=== PATIENT | female | born 1970 | race Caucasian/White ===

== ENCOUNTER 2017-08-02 15:44 | Emergency (ER) | payer OTHER ==
[~2017-08-02 15:44] MED LIST: Iopamidol 370 76% 50 ML VIAL FS ONE
[2017-08-02] MEDS ORDERED: ISOVUE-370 76%-LOCM 1 ML ONE (15:45)
[2017-08-02 16:17] LABS: #Eosinphils 0.2 thou/uL (0.0-0.7); #Lymphocytes 1.3 thou/uL (1.20-3.40); #Monocytes 0.6 thou/uL (0.11-0.59); #Neutrophils 9.3 thou/uL (1.40-6.50); %Basophils 0.4 % (0.0-1.0); %Lymphocytes 11.2 % (21.0-51.0); %Monocytes 5.2 % (0.0-10.0); Hematocrit 43.3 % (36.0-47.0); Red Blood Cell (RBC) Count 4.67 mill/uL (4.20-5.40); White Blood Cell (WBC) Count 11.5 thou/uL (4.8-10.8)
[2017-08-02 16:40] LABS: Anion Gap 15 mmol/L (10-20); BUN (Urea Nitrogen) 11 mg/dL (7.0-18.7); Calc. Creatinine Clearance 0 mL/min (70-130); Carbon Dioxide 22 mmol/L (22-29); Chloride 99 mmol/L (98-107); Estimated GFR-MDRD 57
[2017-08-02 16:41] LABS: ALT (SGPT) 16 U/L (8-55); AST (SGOT) 19 U/L (5-34); Alkaline Phosphatase 98 U/L (40-150); Bilirubin, Total 0.3 mg/dL (0.2-1.2); CK (CPK) 63 U/L (29-168); Calcium 9.4 mg/dL (7.8-10.44); Globulin 4.4 g/dL (2.4-3.5); Lipase 26 U/L (8-78); Protein, Total 8.3 g/dL (6.0-8.3)
--- NOTE | 2017-08-02 16:49 | RAD ---
ACUTE ABDOMINAL SERIES 08/02/2017 HISTORY: Cholecystectomy one month ago. The patient had onset of chest pain one day ago. FINDINGS: CHEST X-RAY: Compared to study on 06/23/2017. Cardiac silhouette and pulmonary vasculature are within normal limits. The lungs remain clear. The re has been no interval change from prior exam. TWO VIEWS OF THE ABDOMEN: Surgical clips overlie the right upper quadrant. Phleboliths overlie the pelvis. Post-surgical all nges of right hip are seen. Degenerative changes noted in the spine. There is a nonspecific bowel gas pattern with small amount of retained fecal material seen in the ascending transverse colon. IMPRESSION: Nonspecific bowel gas pattern. POS: [facility]
[2017-08-02] MEDS ORDERED: Ondansetron HCl/PF 4 MG/2 ML Vial ONE (16:54)
[2017-08-02] MEDS ORDERED: Morphine 10 MG/ML VIAL ONE ×2 (16:54→17:52)
[2017-08-02] MEDS ORDERED: Famotidine/PF 20 mg/2ml Vial ONE (18:11)
[2017-08-02] MEDS ORDERED: Fentanyl 100 MCG/2 ML VIAL ONE (18:11)
[2017-08-02 19:52] LABS: Bilirubin Negative (Negative); Blood, Urine Large (Negative); Glucose, Urine (Dipstick) Negative (Negative); Ketone, Urine Trace mg/dL (Negative); Nitrite Negative (Negative); Protein, Urine (Dipstick) Negative (Neg-Trace); Urobilinogen 0.2 mg/dL (0.2-1.0)
[2017-08-02 19:54] LABS: Bacteria/HPF 1+ HPF (None Seen); Hyaline Casts/LPF 4-6 HYALINE CAST LPF (0-3 Hyaline)
[2017-08-02] MEDS ORDERED: cefTRIAXone\\ROCEPHIN 1 GM, Syringe 0.4 ML in Sterile Water 9.6 ML SLOW IVP SCH (20:30)
--- NOTE | 2017-08-02 22:10 | CT ---
CT ABDOMEN AND PELVIS WITH IV CONTRAST: History: 47-year-old female with nausea and chest pain with a history of cholecystectomy one month a go. FINDINGS: There is mild bibasilar atelectasis. There is nonspecific heterogeneity of the liver. The gallbladde r is surgically absent. Pancreas and spleen are normal appearing. The adrenal glands are normal appearing. There is mild right and severe left hydronephrosis. There is an enhancing mass seen at the level of the cervix involving the posterior aspect of the bladder. The transition point for the dilated urete rs is seen near this region, at approximately the level of the trigone. The mass measures approximat min 5.4 x 4.1 cm in size and is suspicious for cervical malignancy. There is a gas filled tampon within the vagina. Rectum and perirectal soft tissues are unremarkable. No pathologically enlarged lymph nodes are grossly evident. There is healed percutaneously pinned r ight femoral neck fracture without overt evidence of osteonecrosis of the femoral head. There is mil d degenerative change of the lower lumbar spine. IMPRESSION: 1. Mass seen within the region of the cervix with mass effect on the posterior aspect of the bladder causing mild right and severe left hydronephrosis. Findings are suspicious for locally invasive cer vical malignancy. ENVIRONMENTAL HEALTH AIDE consultation is recommended. 2. Heterogenous appearance of the liver is nonspecific and may be related to phase of contrast. 3. Cholecystectomy. 4. Healed percutaneously pinned right femoral neck fracture without evidence of osteonecrosis. Code T POS: [facility]
--- NOTE | 2017-08-07 18:13 | EKG ---
Test Reason : Blood Pressure : / mmHG Vent. Rate : 115 BPM Atrial Rate : 115 BPM P-R Int : 128 ms QRS Dur : 086 ms QT Int : 352 ms P-R-T Axes : 073 003 076 degrees QTc Int : 486 ms Sinus tachycardia Biatrial enlargement Abnormal ECG Confirmed by CYNTHIA LOPEZ M.D. ([id number]), field map editor NATALYA BEAN ([id number]) on 08/07/2017 6:12:58 PM Referred By: Confirmed By:CYNTHIA LOPEZ M.D.
== END 2017-08-02 22:34 | disposition home or self-care (01) ==
LOC: ERS 15:44
DX: N13.30 Unspecified hydronephrosis (principal); N39.0 Urinary tract infection, site not specified; R03.0 Elevated blood-pressure reading, without diagnosis of hypertension; S72.001D Fracture of unspecified part of neck of right femur, subsequent encounter for closed fracture with routine healing; F17.210 Nicotine dependence, cigarettes, uncomplicated; V89.2XXD Person injured in unspecified motor-vehicle accident, traffic, subsequent encounter
CPT/HCPCS: 74022; 74177; 80053; 81003; 81015; 81025; 82553; 83690; 84484; 85025; 87086; 93005; 96361; 96374; 96375; 96376; 99406; A4216; J0696; J2270; J2405; J3010; S0028

== ENCOUNTER 2017-09-02 10:34 | Outpatient (CLI) | payer OTHER ==
[2017-09-02 12:22] LABS: Hematocrit 37.2 % (36.0-47.0); Mean Platelet Volume 7.4 fL (7.4-10.4); Red Blood Cell (RBC) Count 3.96 mill/uL (4.20-5.40)
[2017-09-02 12:30] LABS: PTT 28.3 SEC (22.9-36.1); Prothrombin Time 14.1 SEC (12.0-14.7)
[2017-09-02 12:42] LABS: Anion Gap 11 mmol/L (10-20); BUN (Urea Nitrogen) 19 mg/dL (7.0-18.7); Calc. Creatinine Clearance 0 mL/min (70-130); Calcium 9.2 mg/dL (7.8-10.44); Carbon Dioxide 26 mmol/L (22-29); Chloride 104 mmol/L (98-107); Estimated GFR-MDRD 53
[2017-09-02 12:43] LABS: Bilirubin Negative (Negative); Blood, Urine Negative (Negative); Glucose, Urine (Dipstick) Negative (Negative); Ketone, Urine Negative (Negative); Nitrite Negative (Negative); Protein, Urine (Dipstick) Negative (Neg-Trace)
[2017-09-02 12:46] LABS: Bacteria/HPF None Seen HPF (None Seen); Hyaline Casts/LPF 0-3 HYALINE CAST LPF (0-3 Hyaline); RBC/HPF 0-3 HPF (0-3); Squamous Epithelial 0-3 HPF (0-3); WBC/HPF 0-3 HPF (0-3)
== END 2017-09-02 10:35 | disposition home or self-care (01) ==
LOC: LABBT 10:34
PROVIDERS: ATTEND Urology
DX: Z01.818 Encounter for other preprocedural examination (principal); N13.30 Unspecified hydronephrosis
CPT/HCPCS: 80048; 81001; 81025; 85027; 85610; 85730; 87086; 93005; 93010

== ENCOUNTER 2017-09-09 09:05 | Day surgery (SDC) | payer OTHER, SELFPAY ==
[2017-09-02 10:43] VITALS: BMI 27.4
[2017-09-09] MEDS ORDERED: Levofloxacin 500 mg/D5W 100 ml Premix Bag ONE (10:22)
[2017-09-09] MEDS ORDERED: Iothalamate Meglumine 60% 50 ML VIAL FS ONE (11:12)
[2017-09-09] MEDS ORDERED: Midazolam HCl 2 mg/2 ml Vial ONE (11:13)
[2017-09-09] MEDS ORDERED: Fentanyl 100 MCG/2 ML VIAL ONE ×2 (11:17)
--- NOTE | 2017-09-09 12:34 | OP ---
DATE OF PROCEDURE: 09/09/2017 SERVICE: Urology. SURGEON: Forrest Lawson M.D. PREOPERATIVE DIAGNOSIS: Metastatic cervical cancer with bilateral hydronephrosis. POSTOPERATIVE DIAGNOSIS: Metastatic cervical cancer with bilateral hydronephrosis. PROCEDURES PERFORMED: Cystoscopy with retrograde pyelogram and bilateral ureteral stent placement. INDICATIONS FOR PROCEDURE: Ms. Thomas is a 47-year-old white female who was diagnosed with metastati c cervical cancer. Her biopsies have only demonstrated high grade dysplasia, but it is likely that s he has a higher adenocarcinoma of the cervix or endometrium. She is planned for chemotherapy and has consultations at [facility], which was her choice. Of note, on her staging imaging, she was noted to have bilateral hydronephrosis, left greater than right. Her creatinine is normal, but I had recom mended that she consider urinary drainage. I recommended nephrostomy tubes given the size of her mas s as stents without a high likelihood of failure, but the patient elected against my recommendations and decided to have stents nonetheless. We have discussed the risks and benefits including stent ish lure and persistent hydronephrosis with further need for nephrostomy tubes later. She understands th is risks and still wishes to go forward with the stent now. DESCRIPTION OF PROCEDURE: After identification of armband and verification of consent, the patient w as brought back to the operating room where she underwent general anesthesia with LMA. She was place d in dorsal lithotomy position and prepped and draped in usual sterile fashion. After appropriate ti meout, a lubricated 22 Malawian rigid cystoscope was then introduced per urethra into the bladder. A f ull cystoscopy was performed which demonstrated a large mass effect on the trigone of the bladder wit h elevation of both ureteral orifices. There appears to be tumor invasion into the bladder with nodu lar whitish masses with hypervascularity surrounding the left ureteral orifice worrisome for cervical cancer invasive into the bladder. If she ever was planned for debulking hysterectomy, it would be v valerio likely the patient would need a cystectomy at the same time which makes palliative hysterectomy l ess likely and it is unlikely she would need surgery anyways given her metastatic cancer. Nonetheles s, a 0.035 sensor wire was advanced through the left ureteral orifice which appeared to coil somewhat proximal to where the expected location of the kidney. A 5 Malawian Pollack catheter was passed over the sensor wire into the distal ureter and the sensor wire removed. A retrograde pyelogram was perfo rmed which demonstrated a tortuous left ureter with the coiling of the wire in the region of the prox imal ureter where there was a sigmoid curvature into a very hydronephrotic left kidney. Using the Po llack catheter, this was used to guide an angled Glidewire through the area of the tortuosity into th e renal pelvis. The Pollack catheter was then removed and a 6 x 26 double-J stent was advanced over the Glidewire till the level of the renal pelvis. The Glidewire was then removed leaving a good curl in the renal pelvis and good curl in the bladder. Attention was then turned to the right ureteral o rifice which was cannulated with a 0.035 sensor wire up to the level of the expected renal pelvis. A 6 x 26 double-J stent was advanced over the sensor wire to the level of the renal pelvis and the wir e removed leaving a good curl in the renal pelvis and good curl in the bladder. This was in the expe cted location of the renal pelvis and I felt comfortable with this location. Both stents did appear to be effluxing urine, although the left side appeared slow. On final one shot fluoroscopy, the cont rast had drained out of the renal pelvis; however, there was still a column of contrast in the distal ureter indicating that there may still be a partial obstruction despite the stent. Nonetheless, we will see how she does with this and then plan for repeat ultrasound in the future with renal function , and if she has persistent hydronephrosis, we may need to discuss nephrostomy tube placement versus metal stent with preference towards nephrostomy tube. The bladder was then emptied and the cystoscop e was removed. The patient was awakened and taken to PACU for recovery in stable condition. COMPLICATIONS: None. ESTIMATED BLOOD LOSS: Minimal. RETAINED TUBES AND DRAINS: A 6 x 26 double-J stents bilaterally. SPECIMENS: None. DISPOSITION: The patient will be discharged home and follow up with me in approximately 2 months for a stent exchange. I will plan a renal ultrasound in approximately 1 week and call her with the resu lts. If there is persistent hydronephrosis, I will call her back sooner and we will plan for further intervention with possible nephrostomy tubes. She should keep her appointments at [facility] for c ontinuation of treatment of her metastatic cervical cancer.
[2017-09-09] MEDS ORDERED: Oxybutynin 5 MG TAB ONE (12:38)
[2017-09-09] MEDS ORDERED: Phenazopyridine HCl 97.5 MG TABLET ONE ×2 (12:39→12:41)
--- NOTE | 2017-09-09 14:49 | RAD ---
BILATERAL RETROGRADE PYELOGRAM: DATE: 09/09/17. HISTORY: Bilateral hydronephrosis. FINDINGS: Four images are provided during retrograde pyelogram. Initial image demonstrates contrast media with in a dilated ureter and partially imaged renal collecting system. This appears to represent the left side. Subsequent imaging demonstrates placement of a left-sided double-J ureteral stent and a right -sided double-J ureteral stent. Final image demonstrates residual contrast media within a dilated di stal right ureter. IMPRESSION: Bilateral double-J ureteral stent placement. There is residual contrast media within dilated distal left ureter. Findings suggesting a distal bilateral obstructing process, as seen on08/02/[address] [facility]. POS: [facility]
[2017-09-09] MEDS ORDERED: Dexamethasone 20 MG/5 ML VIAL ONE (17:15)
[2017-09-09] MEDS ORDERED: Ondansetron HCl/PF 4 MG/2 ML Vial ONE (17:15)
[2017-09-09] MEDS ORDERED: Propofol 200 MG/20 ML VIAL ONE (17:15)
[2017-09-09] MEDS ORDERED: Ketorolac Tromethamine 30 MG/ML VIAL ONE (17:15)
[2017-09-09] MEDS ORDERED: Lidocaine 1% PF 5 ML VIAL ONE (17:15)
== END 2017-09-09 13:45 | disposition home or self-care (01) ==
LOC: SDC 09:05
PROVIDERS: ATTEND Urology
PROC: 0T9880Z Drainage of Bilateral Ureters with Drainage Device, Via Natural or Artificial Opening Endoscopic (ICD-10-PCS; principal; 2017-09-09)
DX: N13.30 Unspecified hydronephrosis (principal); R87.613 High grade squamous intraepithelial lesion on cytologic smear of cervix (HGSIL); C53.9 Malignant neoplasm of cervix uteri, unspecified; N32.9 Bladder disorder, unspecified; F17.210 Nicotine dependence, cigarettes, uncomplicated; Z90.49 Acquired absence of other specified parts of digestive tract; Z88.5 Allergy status to narcotic agent; Z88.1 Allergy status to other antibiotic agents; Z98.890 Other specified postprocedural states
CPT/HCPCS: 74420; C1758; C1769; J1100; J1885; J1956; J2001; J2250; J2405; J2704; J3010; Q9961

== ENCOUNTER 2017-11-29 16:08 | Outpatient (CLI) | payer OTHER, SELFPAY ==
[2017-11-29 17:26] LABS: Hemoglobin 13.7 g/dL (12.0-16.0); Mean Corpuscular HGB CONC 32.1 g/dL (32.0-36.0); Mean Corpuscular Hemoglobin 28.9 pg (27.0-31.0); Mean Corpuscular Volume 90.1 fl (81.0-99.0); Mean Platelet Volume 6.8 fL (7.4-10.4); Platelet Count 347 thou/uL (130-400); RBC Distribution Width 12.9 % (11.5-14.5); Red Blood Cell (RBC) Count 4.72 mill/uL (4.20-5.40); White Blood Cell (WBC) Count 9.3 thou/uL (4.8-10.8)
[2017-11-29 17:31] LABS: PTT 25.9 SEC (22.9-36.1); Prothrombin Time 13.2 SEC (12.0-14.7)
[2017-11-29 17:50] LABS: Bilirubin Negative (Negative); Blood, Urine Moderate (Negative); Clarity CLEAR (Clear); Glucose, Urine (Dipstick) Negative (Negative); Leukocyte Moderate (Negative); Nitrite Negative (Negative); Protein, Urine (Dipstick) Negative (Neg-Trace); Specific Gravity, Urine 1.014 (1.002-1.036); Urobilinogen 0.2 mg/dL (0.2-1.0)
[2017-11-29 17:52] LABS: Anion Gap 12 mmol/L (10-20); BUN (Urea Nitrogen) 13 mg/dL (7.0-18.7); Calc. Creatinine Clearance 0 mL/min (70-130); Calcium 9.3 mg/dL (7.8-10.44); Carbon Dioxide 25 mmol/L (22-29); Chloride 102 mmol/L (98-107); Estimated GFR-MDRD 70; Glucose 84 mg/dL (70-105); Sodium 135 mmol/L (136-145)
[2017-11-29 17:56] LABS: Bacteria/HPF None Seen HPF (None Seen); Hyaline Casts/LPF 0-3 HYALINE CAST LPF (0-3 Hyaline)
[2017-11-29 18:23] LABS: Renal Epithelial None Seen HPF (0-3); Transitional Epithelial 0-3 HPF (0-3)
[2017-11-29 19:47] LABS: BHCG - Serum Negative (NEGATIVE); Pregs Control Background? CLEAR/WHITE (CLR/WHITE); Pregs Control Bar Appear? YES (CONTROL BAR)
--- NOTE | 2017-11-30 11:50 | EKG ---
Test Reason : Blood Pressure : / mmHG Vent. Rate : 096 BPM Atrial Rate : 096 BPM P-R Int : 128 ms QRS Dur : 094 ms QT Int : 368 ms P-R-T Axes : 069 063 059 degrees QTc Int : 464 ms Normal sinus rhythm Possible Left atrial enlargement Poor anterior R wave progression V1 thru V3 Borderline ECG When compared with ECG of 02-SEP-2017 11:07, (Unconfirmed) No significant change was found Confirmed by DR. Charla SPEARS ([id number]) on 11/30/2017 11:50:12 AM Referred By: FARZAD Confirmed By:DR. Charla SPEARS
== END 2017-11-29 16:09 | disposition home or self-care (01) ==
LOC: LABBT 16:08
PROVIDERS: ATTEND Urology
DX: Z01.818 Encounter for other preprocedural examination (principal); N13.30 Unspecified hydronephrosis; N32.89 Other specified disorders of bladder
CPT/HCPCS: 80048; 81001; 84703; 85027; 85610; 85730; 87086; 93005; 93010

== ENCOUNTER 2017-12-02 06:15 | Day surgery (SDC) | payer OTHER, SELFPAY ==
[2017-11-29 16:47] VITALS: BMI 24.9
[2017-12-02] MEDS ORDERED: Levofloxacin 500 mg/D5W 100 ml Premix Bag ONE (06:28)
[2017-12-02] MEDS ORDERED: Fentanyl 250 MCG/5 ML VIAL ONE (06:54)
[2017-12-02] MEDS ORDERED: Midazolam HCl 2 mg/2 ml Vial ONE (07:30)
[2017-12-02] MEDS ORDERED: Propofol 200 MG/20 ML VIAL ONE (07:35)
[2017-12-02] MEDS ORDERED: Glycopyrrolate 0.2 MG/ML 5 ML SYRINGE ONE (07:35)
[2017-12-02] MEDS ORDERED: Ondansetron HCl/PF 4 MG/2 ML Vial ONE (07:35)
[2017-12-02] MEDS ORDERED: Lidocaine 1% PF 5 ML VIAL ONE (07:35)
[2017-12-02] MEDS ORDERED: Dexamethasone 20 MG/5 ML VIAL ONE (07:35)
[2017-12-02] MEDS ORDERED: B & O ONE (08:14)
[2017-12-02] MEDS ORDERED: Phenazopyridine HCl 97.5 MG TABLET ONE (09:03)
[2017-12-02] MEDS ORDERED: Oxybutynin 5 MG TAB ONE (09:03)
--- NOTE | 2017-12-02 09:53 | OP ---
DATE OF PROCEDURE: 12/02/2017 SERVICE: Urology. SURGEON: Forrest Lawson M.D. PREOPERATIVE DIAGNOSES: Presumed cervical cancer with bilateral hydronephrosis. POSTOPERATIVE DIAGNOSES: Presumed cervical cancer with bilateral hydronephrosis. PROCEDURE PERFORMED: A transurethral resection of bladder tumor approximately 2-5 cm with bilateral stent exchange 6 x 26 double-J stent. INDICATIONS FOR PROCEDURE: Mrs. Thomas is a 47-year-old white female with a large cervical mass whic h was presumed to be cervical cancer. This has resulted in bilateral hydronephrosis which she origin ally presented to me for. We had placed stents at that time and she was scheduled for a repeat biops y of her cervix. Unfortunately, multiple biopsies from the cervix have been nondiagnostic of cervica l cancer demonstrating only normal cervical tissue. Based on CT findings, it is likely that the mass is growing from the proximal portion of the cervical canal. As such, she has still not had a tissue diagnosis. I discussed with her obtaining tissue diagnosis to the bladder. It did appear that ther e was tumor growing into the bladder from the cervix and since she is being taken for a stent exchang e anyways. Risks and benefits of the surgery were discussed and she has agreed to proceed forward. DESCRIPTION OF PROCEDURE: After identification of arm band verification and consent, the patient was brought back to the operating room where she underwent general anesthesia with endotracheal intubati on. She was then placed in dorsal lithotomy position, prepped and draped in usual sterile fashion. After appropriate timeout, a 24 Greek resectoscope sheath was placed into the bladder. Attention wa s turned to both ureteral orifices, which demonstrated stents and standard surrounding bullous edema. Near the left ureteral orifice there appeared to be calcifications and a polypoid type tumorous tis sandra growing from adjacent to the ureteral orifice. This appeared suspicious for cervical cancer. Th e visual obturator was switched out for the bladder loop resectoscope sheath on the bipolar gyrus. R esections were taken just lateral to the ureteral orifice into the bladder until I felt I was deep en ough to get the cervical cancer tissue. The tissue appeared fluffy and somewhat necrotic indicating very high likelihood that the tumor was obtained in the resection specimen. This does appear very mu ch like cancer on cystoscopy. The chips were evacuated and sent off for routine pathologic evaluatio n. The base of the tumor resection site was fulgurated. There did not appear to be any extension of the resection outside of the bladder. There did not appear to be any perivesical fat or other caro rning findings. I did not feel a catheter needs to be left in. The resectoscope was removed and a s tandard 22 Greek rigid cystoscope was introduced into the bladder. The left stent was then grasped with flexible graspers and removed to the urethral meatus. A 0.035 sensor wire was passed through th e ureteral stent up to the level of the renal pelvis. The stent was then removed and discarded and t he cystoscope was backloaded over the sensor wire back into the bladder. A new 6 x 26 double-J stent was advanced over the sensor wire back up into the renal pelvis. The wire was removed leaving a goo d curl in the renal pelvis and good curl in the bladder. Attention was then turned to the other were stent on the right and the same procedure was repeated as on the left with removal of the old 6 x 26 stent and placement of a new 6 x 26 double-J stent over the same sensor wire. Both stents had excel lent positioning at the end of the case with good curls proximally and distally. The bladder was the n emptied and the visual inspection of the tumor base again demonstrated no bleeding. All tumor chip s were evacuated. The bladder was emptied and the cystoscope was removed. A BNO suppository was ion elina in the patient's rectum. She was then taken out of lithotomy, awakened and taken to PACU for rec overy in stable condition. COMPLICATIONS: None. ESTIMATED BLOOD LOSS: Minimal. RETAINED TUBES AND DRAINS: Bilateral 6 x 26 double-J stents. SPECIMENS: Bladder tumor likely cervical cancer. DISPOSITION: The patient will be discharged home and follow up with me in approximately 2 and a half months for her next stent exchange. Depending on her progression of treatment at that point, if she has had a significant reduction in her tumor size with chemo and radiation we may be able to conside r taking her stents out and seeing how she does without any stents to see if her hydronephrosis has r esolved.
== END 2017-12-02 10:33 | disposition home or self-care (01) ==
LOC: SDC 06:15
PROVIDERS: ATTEND Urology
PROC: 0T788DZ Dilation of Bilateral Ureters with Intraluminal Device, Via Natural or Artificial Opening Endoscopic (ICD-10-PCS; principal; 2017-12-02)
PROC: 0T5B8ZZ Destruction of Bladder, Via Natural or Artificial Opening Endoscopic (ICD-10-PCS; principal; 2017-12-02)
DX: C67.6 Malignant neoplasm of ureteric orifice (principal); N13.30 Unspecified hydronephrosis; N32.89 Other specified disorders of bladder; F17.210 Nicotine dependence, cigarettes, uncomplicated; Z79.899 Other long term (current) drug therapy; Z88.5 Allergy status to narcotic agent; Z88.2 Allergy status to sulfonamides; Z87.442 Personal history of urinary calculi
CPT/HCPCS: 76000; 86850; 86900; 86901; 88305; 88342; C1769; J1100; J1956; J2001; J2250; J2405; J2704; J3010

== ENCOUNTER 2018-03-14 13:56 | Outpatient (CLI) | payer OTHER ==
[2018-03-14 15:21] LABS: Mean Corpuscular HGB CONC 35.3 g/dL (32.0-36.0); Mean Corpuscular Volume 87.9 fl (81.0-99.0); Mean Platelet Volume 7.5 fL (7.4-10.4); Platelet Count 83 thou/uL (130-400); RBC Distribution Width 12.8 % (11.5-14.5); Red Blood Cell (RBC) Count 3.87 mill/uL (4.20-5.40)
[2018-03-14 15:28] LABS: Bilirubin Negative (Negative); Blood, Urine Large (Negative); Clarity CLOUDY (Clear); Glucose, Urine (Dipstick) >=1000 mg/dL (Negative); Leukocyte Small (Negative); Nitrite Negative (Negative); Protein, Urine (Dipstick) 100 mg/dL (Neg-Trace); Specific Gravity, Urine 1.033 (1.002-1.036)
[2018-03-14 15:30] LABS: Prothrombin Time 13.1 SEC (12.0-14.7)
[2018-03-14 15:32] LABS: Hyaline Casts/LPF 4-6 HYALINE CAST LPF (0-3 Hyaline); Pathc Cast-AUWi Flag 0.72 (0-2.49); WBC/HPF 21-50 HPF (0-3)
[2018-03-14 15:33] LABS: Anion Gap 10 mmol/L (10-20); BUN (Urea Nitrogen) 21 mg/dL (7.0-18.7); Calc. Creatinine Clearance 0 mL/min (70-130); Calcium 8.8 mg/dL (7.8-10.44); Carbon Dioxide 23 mmol/L (22-29); Chloride 105 mmol/L (98-107); Estimated GFR-MDRD 71; Glucose 197 mg/dL (70-105); Potassium 3.4 mmol/L (3.5-5.1); Sodium 135 mmol/L (136-145)
[2018-03-14 15:35] LABS: PTT 22.8 SEC (22.9-36.1)
[2018-03-14 15:37] LABS: Yeast-AUWi Flag 83.5 (0-25.0)
[2018-03-14 15:49] LABS: Bacteria/HPF 1+ HPF (None Seen); Renal Epithelial None Seen HPF (0-3); Transitional Epithelial NONE SEEN HPF (0-3); Yeast-All Forms None Seen HPF (None Seen)
--- NOTE | 2018-03-14 16:40 | EKG ---
Test Reason : Blood Pressure : / mmHG Vent. Rate : 106 BPM Atrial Rate : 106 BPM P-R Int : 130 ms QRS Dur : 092 ms QT Int : 352 ms P-R-T Axes : 075 055 076 degrees QTc Int : 467 ms Sinus tachycardia Right atrial enlargement /possibly per P wave Lead II Borderline ECG When compared with ECG of 29-NOV-2017 17:09, No significant change was found Confirmed by ANJU TRUONG ([id number]) on 03/14/2018 4:39:39 PM Referred By: FARZAD Confirmed By:ANJU TRUONG
== END 2018-03-14 13:57 | disposition home or self-care (01) ==
LOC: LABBT 13:56
PROVIDERS: ATTEND Urology
DX: Z01.818 Encounter for other preprocedural examination (principal)
CPT/HCPCS: 80048; 81001; 85027; 85610; 85730; 87086; 93005; 93010

== ENCOUNTER 2018-03-31 09:45 | Day surgery (SDC) | payer OTHER ==
[2018-03-30 14:29] VITALS: BMI 24.7
[2018-03-31] MEDS ORDERED: Iothalamate Meglumine 60% 50 ML VIAL FS ONE (11:41)
[2018-03-31] MEDS ORDERED: Levofloxacin 500 mg/D5W 100 ml Premix Bag ONE (11:42)
[2018-03-31] MEDS ORDERED: Fentanyl 100 MCG/2 ML VIAL ONE (12:00)
[2018-03-31] MEDS ORDERED: B & O ONE (12:16)
--- NOTE | 2018-03-31 12:50 | OP ---
DATE OF PROCEDURE: 03/31/2018 SERVICE: Urology. SURGEON: Forrest Lawson M.D. PREOPERATIVE DIAGNOSIS: Advanced cervical cancer with bilateral ureteral obstruction. POSTOPERATIVE DIAGNOSIS: Advanced cervical cancer with bilateral ureteral obstruction. PROCEDURE PERFORMED: Cystoscopy with bilateral stent exchange with 7 x 26 double-J stents. INDICATIONS FOR PROCEDURE: Ms. Thomas is a 47-year-old white female with stage IIIB cervical cancer with bilateral ureteral obstruction. She has been undergoing stent exchanges to manage her hydroneph rosis. On recent staging imaging by her oncologist, it was noted that she had a persistent hydro philip pite her ureteral stents which are overdue for a stent exchange. I recommended bringing her to the o perating room for a stent upsizing in an attempt to relieve the obstruction. Risks and benefits have been discussed with the patient and she has agreed to move forward. DESCRIPTION OF PROCEDURE: After identification of armband and verification of consent, patient was b rought back to the operating room and underwent general anesthesia with an LMA. She was then placed in dorsal lithotomy position and prepped and draped in usual sterile fashion. After appropriate time out, a lubricated 22 Ukrainian rigid cystoscope was introduced per urethra into the bladder. The bladde r shows significant bullous edema and cystitis changes, but there does appear to be less tumor within the bladder than on previous cystoscopy. The left stent was initially grasped with flexible grasper s and brought out to the level of the urethral meatus. A 0.035 sensor wire was advanced through the ureteral stent up to the level of the renal pelvis. The stent was then removed and discarded. The o ld stent with 6 x 26 double-J stent and a new 7 x 26 double-J stent was advanced over the sensor wire back up into the renal pelvis under direct vision. The wire was then removed leaving a good curl in the renal pelvis and good curl in the bladder. Attention was then turned to the right ureter and th e grasper was used to grasp the stent and bring out to the level of the urethral meatus. Attempts to pass the wire through the stent was unsuccessful due to encrustation within the stent. Therefore, t he cystoscope was reinserted back into the bladder alongside the ureteral stent and the sensor wire a dvanced alongside the ureteral stent to the level of the renal pelvis. The stent was then removed an d discarded manually and the new 7 x 26 double-J stent was advanced over the sensor wire up to the le keo of the renal pelvis. The wire was then removed leaving a good curl in the renal pelvis and a goo d curl in the bladder. The bladder was then emptied, the cystoscope removed. The patient then awake branden and taken to PACU for recovery in stable condition. A 16-A B&O suppository was placed in the pat ient's rectum prior to her waking up from anesthesia. COMPLICATIONS: None. ESTIMATED BLOOD LOSS: Minimal. RETAINED TUBES AND DRAINS: Bilateral 7 x 26 double-J stents. SPECIMENS: None. DISPOSITION: The patient will be discharged home and follow up with me in approximately 2 weeks with a renal ultrasound done prior to ensure that both stents are functioning. If they are not functioni ng, she will likely need nephrostomy tubes.
[2018-03-31] MEDS ORDERED: Phenazopyridine HCl 97.5 MG TABLET ONE ×2 (12:58→13:00)
--- NOTE | 2018-03-31 13:22 | RAD ---
RETROGRADE URETEROGRAM AND INTRAOPERATIVE FLUOROSCOPY: HISTORY: Ureteral stents. FINDINGS: Operative fluoroscopy was provided for Dr. Lawson. Spot fluoroscopic image shows the upper two-thir ds of the bilateral ureteral stents. The urinary bladder is excluded from the image. POS: [facility]
[2018-03-31] MEDS ORDERED: PROPOFOL 200 MG/20 ML VIAL ONE (15:27)
== END 2018-03-31 13:52 | disposition home or self-care (01) ==
LOC: SDC 09:45
PROVIDERS: ATTEND Urology
PROC: 0T788DZ Dilation of Bilateral Ureters with Intraluminal Device, Via Natural or Artificial Opening Endoscopic (ICD-10-PCS; principal; 2018-03-31)
PROC: 0TP98DZ Removal of Intraluminal Device from Ureter, Via Natural or Artificial Opening Endoscopic (ICD-10-PCS; principal; 2018-03-31)
DX: N13.1 Hydronephrosis with ureteral stricture, not elsewhere classified (principal); C53.9 Malignant neoplasm of cervix uteri, unspecified; Z88.5 Allergy status to narcotic agent; Z79.2 Long term (current) use of antibiotics; Z79.899 Other long term (current) drug therapy
CPT/HCPCS: 74420; C1769; J1956; J2704; J3010; Q9961

== ENCOUNTER 2018-04-11 12:14 | Outpatient (CLI) | payer OTHER | END 2018-04-11 12:15 | disposition home or self-care (01) | LOC: BICULT 12:14 | PROVIDERS: ATTEND Urology | DX: N13.39 Other hydronephrosis (principal); Z96.0 Presence of urogenital implants | CPT/HCPCS: 76770 ==

== ENCOUNTER 2018-05-27 08:29 | Outpatient (CLI) | payer OTHER ==
--- NOTE | 2018-05-27 11:33 | RAD ---
IVP: HISTORY: A 47-year-old female with a history of hydronephrosis and cervical cancer. FINDINGS: Radio Survey Worker film demonstrates bilateral ureteral stents. Following contrast injection, there is bilateral excretion. There is slight fullness of both right and left upper renal collecting systems. The righ t kidney is somewhat larger than the left, with what appears to be some probable mild cortical thinni ng of the left kidney compared to the right. There is prompt drainage into the bladder. There are s ome nodular filling defects within the bladder. I am not certain as to the exact etiology of these. These are noted somewhat near the midline and best seen on the earlier incompletely filled imaging a nd not definitely demonstrated on the more delayed imaging with a more completely filled bladder. Tw o post void studies were done. Initially, the patient did not completely void. She was returned to the bathroom and re-voided, and there was considerable bladder residual, post-void. IMPRESSION: 1. Bilateral ureteral stents with some moderate dilatation of both right and left renal upper collec ting systems with what appears to be a somewhat smaller left kidney and some diffuse left-sided renal cortical loss. 2. Very lobulated, nodular filling defect/defects in the central portion of the bladder, the overall combined size of which measures approximately 1.2 x 4.8 cm. I am not certain as to the etiology of this. Conceivably this could represent some type of intraluminal filling defect from blood or debris . 3. Large post-void residual, despite two attempts at voiding. POS: [facility]
[2018-05-27] MEDS ORDERED: Iopamidol 300 61% 100 ML VIAL FS ONE (13:40)
== END 2018-05-27 08:30 | disposition home or self-care (01) ==
LOC: RAD 08:29
PROVIDERS: ATTEND Urology
DX: C53.9 Malignant neoplasm of cervix uteri, unspecified (principal); N13.39 Other hydronephrosis; N32.9 Bladder disorder, unspecified; Z96.0 Presence of urogenital implants
CPT/HCPCS: 74410

== ENCOUNTER 2018-05-28 18:04 | Emergency (ER) | payer OTHER ==
[~2018-05-28 18:04] MED LIST changes: +ISOVUE-370 76%-LOCM 1 ML ONE; -Iopamidol 370 76% 50 ML VIAL FS ONE
[2018-05-28] MEDS ORDERED: Diazepam 5 MG TAB ONE (18:38)
[2018-05-28] MEDS ORDERED: Ketorolac Tromethamine 30 MG/ML VIAL ONE (18:55)
--- NOTE | 2018-05-28 19:33 | CT ---
CT SCAN OF RIGHT SHOULDER: 05/28/18 Multiple axial tomograms obtained through the right shoulder with multiplanar reconstruction. INDICATIONS: Shoulder pain. On chemotherapy for cervical cancer. There is no evidence of acute fracture. No evidence of dislocation. Minimal degenerative change seen with minimal spurring from the humeral head. Mild degenerative changes at the AC joint. There is no e vidence of lytic or blastic lesion. No soft tissue abnormality seen. IMPRESSION: Very mild degenerative change of the glenohumeral joint and at the AC joint. No acute process identif ied. POS: [facility]
== END 2018-05-28 19:59 | disposition home or self-care (01) ==
LOC: ERS 18:04
DX: M62.838 Other muscle spasm (principal); C53.9 Malignant neoplasm of cervix uteri, unspecified; Z87.442 Personal history of urinary calculi; F17.210 Nicotine dependence, cigarettes, uncomplicated
CPT/HCPCS: 96374; J1885

== ENCOUNTER → 2018-06-02 | Day surgery (SDC) | payer OTHER ==
[2018-06-01 12:17] VITALS: BMI 25.5
[~2018-06-02] MED LIST changes: +Bupivacaine/Epinephrine 0.25% 30 ML VIAL ONE; +CEFAZOLIN/Water 2 GM/20 ML SYRINGE ONE; -ISOVUE-370 76%-LOCM 1 ML ONE
[2018-06-02 11:10] LABS: Anion Gap 7 mmol/L (10-20); BUN (Urea Nitrogen) 19 mg/dL (7.0-18.7); Calc. Creatinine Clearance 87 mL/min (70-130); Calcium 8.7 mg/dL (7.8-10.44); Carbon Dioxide 27 mmol/L (22-29); Chloride 108 mmol/L (98-107); Estimated GFR-MDRD 72; Glucose 92 mg/dL (70-105); Potassium 3.1 mmol/L (3.5-5.1); Sodium 139 mmol/L (136-145)
[2018-06-02 11:22] LABS: #Lymphocytes 0.5 thou/uL (1.20-3.40); #Monocytes 0.2 thou/uL (0.11-0.59); #Neutrophils 0.8 thou/uL (1.40-6.50); %Basophils 0.5 % (0.0-1.0); %Eosinophils 0.2 % (0.0-10.0); %Lymphocytes 35.5 % (21.0-51.0); %Monocytes 10.3 % (0.0-10.0); %Neutrophils 53.6 % (42.0-75.0); Anisocytosis SLIGHT = 6-15 cells (100X) (0-5/hpf); Band 9 % (5-11); Hemoglobin 9.8 g/dL (12.0-16.0); Lymphocytes 32 % (21-51); MDiff Complete? YES; Mean Corpuscular HGB CONC 36.2 g/dL (32.0-36.0); Mean Corpuscular Hemoglobin 35.5 pg (27.0-31.0); Mean Corpuscular Volume 98.1 fL (78.0-98.0); Mean Platelet Volume 7.8 fL (7.4-10.4); Monocytes 10 % (0-10); Neutrophil 47 % (42-75); PLT Morphology Comment Appears Decreased; Platelet Count 79 thou/uL (130-400); Polychromasia SLIGHT = 2-3 cells (100X) (0-2/hpf); RBC Distribution Width 14.3 % (11.5-14.5); Reactive Lymphocytes 2 % (0-10); Red Blood Cell (RBC) Count 2.76 mill/uL (4.20-5.40); Reflex for Review?? YES; White Blood Cell (WBC) Count 1.5 thou/uL (4.8-10.8)
== END ==
LOC: SDC 08:53
PROVIDERS: ATTEND Thoracic Surgery (Cardiothoracic Vascular Surgery)
DX: C53.9 Malignant neoplasm of cervix uteri, unspecified (principal); F17.210 Nicotine dependence, cigarettes, uncomplicated; M16.11 Unilateral primary osteoarthritis, right hip; Z92.3 Personal history of irradiation; Z79.899 Other long term (current) drug therapy; Z88.5 Allergy status to narcotic agent; Z53.8 Procedure and treatment not carried out for other reasons
CPT/HCPCS: 80048; 85025; 85060; J1642

== ENCOUNTER 2018-06-20 09:45 | Outpatient (CLI) | payer OTHER ==
[2018-06-20 10:53] LABS: Bilirubin Negative (Negative); Blood, Urine Large (Negative); Clarity CLOUDY (Clear); Glucose, Urine (Dipstick) Negative (Negative); Leukocyte Moderate (Negative); Nitrite Negative (Negative); Protein, Urine (Dipstick) 100 mg/dL (Neg-Trace); Urobilinogen 0.2 mg/dL (0.2-1.0)
[2018-06-20 10:55] LABS: Bacteria/HPF None Seen HPF (None Seen); Hyaline Casts/LPF 0-3 HYALINE CAST LPF (0-3 Hyaline); Pathc Cast-AUWi Flag 0.87 (0-2.49); RBC/HPF GREATER THAN 50-TNTC HPF (0-3); Squamous Epithelial 21-50 HPF (0-3)
[2018-06-20 10:57] LABS: Renal Epithelial None Seen HPF (0-3); Transitional Epithelial NONE SEEN HPF (0-3)
--- NOTE | 2018-06-26 14:26 | EKG ---
Test Reason : Blood Pressure : / mmHG Vent. Rate : 125 BPM Atrial Rate : 125 BPM P-R Int : 124 ms QRS Dur : 090 ms QT Int : 338 ms P-R-T Axes : 068 045 070 degrees QTc Int : 487 ms Sinus tachycardia Otherwise normal ECG When compared with ECG of 14-MAR-2018 15:00, No significant change was found Confirmed by ALO ALATORRE (2) on 06/26/2018 2:25:53 PM Referred By: FARZAD Confirmed By:ALO ALATORRE
== END 2018-06-20 09:46 | disposition home or self-care (01) ==
LOC: LABBT 09:45
PROVIDERS: ATTEND Urology
DX: Z01.818 Encounter for other preprocedural examination (principal); C53.9 Malignant neoplasm of cervix uteri, unspecified; N13.39 Other hydronephrosis
CPT/HCPCS: 81001; 87086; 93005; 93010

== ENCOUNTER 2018-06-28 11:19 | Day surgery (SDC) | payer OTHER ==
[2018-06-20 09:59] VITALS: BMI 25.4
[2018-06-28] MEDS ORDERED: Levofloxacin 500 mg/D5W 100 ml Premix Bag ONE (12:33)
[2018-06-28] MEDS ORDERED: Midazolam HCl 2 mg/2 ml Vial ONE (12:56)
[2018-06-28] MEDS ORDERED: Dexamethasone 20 MG/5 ML VIAL ONE (14:21)
[2018-06-28] MEDS ORDERED: PROPOFOL 200 MG/20 ML VIAL ONE (14:21)
[2018-06-28] MEDS ORDERED: Lidocaine 1% PF 5 ML VIAL ONE (14:21)
[2018-06-28] MEDS ORDERED: Ondansetron HCl/PF 4 MG/2 ML Vial ONE (14:21)
--- NOTE | 2018-06-28 15:09 | OP ---
DATE OF PROCEDURE: 06/28/2018 SERVICE: Urology. SURGEON: Forrest Lawson M.D. PREOPERATIVE DIAGNOSIS: Bilateral ureteral obstruction secondary to cervical cancer. POSTOPERATIVE DIAGNOSIS: Bilateral ureteral obstruction secondary to cervical cancer. PROCEDURE PERFORMED: Cystoscopy with bilateral stent exchange 6 x 24 double-J stents. INDICATIONS FOR PROCEDURE: Mrs. Thomas is a 47-year-old white female who has advanced stage III cerv ical cancer. She has undergone radiation which was terminated prematurely as well as chemotherapy. She has chronic ureteral obstruction secondary to the advanced cervical cancer which is invasive into her bladder. She is coming in for routine stent exchanges. DESCRIPTION OF PROCEDURE: After identification of armband and verification of consent, the patient w as brought back to the operating room where she underwent general anesthesia with an LMA. She was pl aced in dorsal lithotomy position, prepped and draped in usual sterile fashion. After appropriate ti meout, a lubricated 22 Bolivian rigid cystoscope was used per urethra into the bladder. Attention was turned to the right ureter which there was a stent emanating. Flexible grasper was used to grasp the stent and bring it out to the level of the urethral meatus. There was a lot of stent sticking out o f the ureter indicating that she probably has an oversight stent, it was a 6 x 26 stent which was in previously. A sensor wire was advanced through the ureteral stent at the level of the pelvis. The s tent was then removed and discarded. A 6 x 24 double-J stent was then advanced over the wire using t he assistance of a cystoscope to guide it up into the kidney. The wire was then removed leaving a go od curl in the kidney and good curl in the bladder. Attention was then turned to the left stent whic h was grasped and removed to the level of the meatus. The same wire was used to pass up the stent up to the level of the kidney and the guidewire was removed and discarded. We elected to downsize to a 6 x 24 stent on this side as well as it was too long. Previously, the cystoscope was backloaded ove r the sensor wire back into the bladder and the 6 x 24 double-J stent advanced over the sensor wire u p the level of the kidney. The wire was then removed leaving a good curl in the renal pelvis and goo d curl in the bladder. The bladder was then emptied and the scope removed. The patient was awakened and taken to PACU for recovery in stable condition. COMPLICATIONS: None. ESTIMATED BLOOD LOSS: Minimal. RETAINED TUBES AND DRAINS: Bilateral 6 x 24 double-J stents. SPECIMENS: None. DISPOSITION: The patient will be discharged home and follow up with me in approximately 10 weeks in preparation for her next cystoscopy stent exchange.
== END 2018-06-28 15:10 | disposition home or self-care (01) ==
LOC: SDC 11:19
PROVIDERS: ATTEND Urology
PROC: 0T788DZ Dilation of Bilateral Ureters with Intraluminal Device, Via Natural or Artificial Opening Endoscopic (ICD-10-PCS; principal; 2018-06-28)
PROC: 0TP98DZ Removal of Intraluminal Device from Ureter, Via Natural or Artificial Opening Endoscopic (ICD-10-PCS; principal; 2018-06-28)
DX: C53.9 Malignant neoplasm of cervix uteri, unspecified (principal); N13.1 Hydronephrosis with ureteral stricture, not elsewhere classified; Z88.5 Allergy status to narcotic agent
CPT/HCPCS: 76000; C1758; C1769; J1100; J1956; J2001; J2250; J2405; J2704

== ENCOUNTER 2018-08-04 07:44 | Outpatient (CLI) | payer OTHER ==
--- NOTE | 2018-08-04 11:14 | PET ---
PET CT: HISTORY: 48-year-old female with Stage IV cervical cancer. Status post chemo/radiation therapy. Last chemother apy was yesterday. TECHNIQUE: PET scanning with CT attenuation correction was performed from the base of the brain through the prox imal thighs following the intravenous administration of 11.3 mCi F18-FDG in the left wrist. Imaging w as performed after an uptake interval of 15 minutes. COMPARISON: None. FINDINGS: There is physiologic activity in the GI and tracts, heart, visualized portions of brain, and some of the skeletal musculature. No matthew hypermetabolism is noted in the neck, chest axilla, abdomen, pelvis, or inguinal regions. No hypermetabolic pulmonary nodules, liver, adrenal, or skeletal lesions are seen. The CT scan used for attenuation correction demonstrates no evidence for pleural effusions or ascites . Bilateral ureteral stents are present. IMPRESSION: No evidence of metastatic disease. POS: WILLIAM
== END 2018-08-04 07:45 | disposition home or self-care (01) ==
LOC: PET 07:44
PROVIDERS: ATTEND Internal Medicine Hematology & Oncology
DX: C53.9 Malignant neoplasm of cervix uteri, unspecified (principal)
CPT/HCPCS: 78815; A9552

== ENCOUNTER 2018-10-28 06:11 | Outpatient (CLI) | payer OTHER ==
[2018-10-28 12:37] VITALS: BMI 27.4
[2018-10-28 13:43] LABS: Bilirubin Negative (Negative); Blood, Urine Large (Negative); Clarity CLOUDY (Clear); Glucose, Urine (Dipstick) Negative (Negative); Leukocyte Moderate (Negative); Nitrite Negative (Negative); Protein, Urine (Dipstick) 100 mg/dL (Neg-Trace)
[2018-10-28 13:49] LABS: Bacteria/HPF None Seen HPF (None Seen); RBC/HPF GREATER THAN 50-TNTC HPF (0-3); WBC/HPF 21-50 HPF (0-3)
[2018-10-28 13:50] LABS: Pathc Cast-AUWi Flag 3.34 (0-2.49)
[2018-10-28 14:03] LABS: Hyaline Casts/LPF 0-3 HYALINE CAST LPF (0-3 Hyaline); Other Casts/LPF None Seen LPF (0-3 Hyaline)
== END 2018-10-28 06:12 | disposition home or self-care (01) ==
LOC: LABBT 06:11
PROVIDERS: ATTEND Urology
DX: Z01.812 Encounter for preprocedural laboratory examination (principal); C53.9 Malignant neoplasm of cervix uteri, unspecified; N13.39 Other hydronephrosis
CPT/HCPCS: 81001; 87086

== ENCOUNTER 2018-11-03 08:59 | Day surgery (SDC) | payer OTHER ==
[2018-11-03] MEDS ORDERED: Iothalamate Meglumine 60% 50 ML VIAL FS ONE (10:13)
[2018-11-03] MEDS ORDERED: Fentanyl 100 MCG/2 ML VIAL ONE (10:18)
[2018-11-03] MEDS ORDERED: Midazolam HCl 2 mg/2 ml Vial ONE ×2 (10:18→10:26)
[2018-11-03] MEDS ORDERED: Levofloxacin 500 mg/D5W 100 ml Premix Bag ONE (10:22)
[2018-11-03] MEDS ORDERED: Phenazopyridine HCl 97.5 MG TABLET ONE ×2 (11:53)
[2018-11-03] MEDS ORDERED: Oxybutynin 5 MG TAB ONE (11:53)
--- NOTE | 2018-11-03 12:30 | OP ---
DATE OF PROCEDURE: 11/03/2018 SERVICE: Urology. PREOPERATIVE DIAGNOSIS: Bilateral ureteral obstruction secondary to metastatic cervical cancer. POSTOPERATIVE DIAGNOSIS: Bilateral ureteral obstruction secondary to metastatic cervical cancer. PROCEDURE PERFORMED: Cystoscopy with bilateral stent exchange, 6 x 26 double-J stent. INDICATION FOR PROCEDURE: Ms. Thomas is a 48-year-old white female with bilateral hydronephrosis secondary to advanced cervical cancer, which is obstructing both ureters. She is currently undergoing palliative chemo and had attempted radiation, but had quit secondary to side effects. She is trying to continue on chemotherapy and due to her ureteral obstructions, we have planned for her to continue with stent exchanges. She is a little late in coming in for a stent since she failed to follow up and is now here for stent exchange. The risks and benefits have been discussed and she has agreed to proceed forward. DESCRIPTION OF PROCEDURE: After identification of armband and verification of consent, the patient was brought back to the operating room, where she underwent general anesthesia with an LMA. She was then placed in dorsal lithotomy position and prepped and draped in usual sterile fashion. After appropriate time-out, a lubricated 22-[place]uan rigid cystoscope was introduced per urethra into the bladder. Attention was turned to the right ureteral orifice from which there was a stent emanating. The flexible grasper was used to grasp the stent and bring it up to the level of the urethral meatus. A 0.035 Sensor wire was then passed through the stent up to the level of the renal pelvis. The stent was removed and discarded. The cystoscope was then backloaded over the Sensor wire back in to the bladder and a 6 x 26 double-J stent was advanced over the Sensor wire up to the level of the renal pelvis. The wire was then removed leaving a good curl in the kidney and good curl in the bladder. Attention was then turned to the left ureteral orifice where the exact same procedure was reperformed with the same Sensor wire with the back-loading technique over the wire once in place. A 6 x 26 double-J stent was used on this side as well. Upon removal of the wire, there was a good curl in the kidney and a good curl in the bladder. The bladder was then emptied and cystoscope removed. The patient was then awakened, taken to PACU for recovery in stable condition. COMPLICATIONS: None. ESTIMATED BLOOD LOSS: Minimal. RETAINED TUBES AND DRAINS: 6 x 26 double-J stents bilaterally. SPECIMENS: None. DISPOSITION: The patient will be discharged home and follow up with me in three months. She had no encrustation whatsoever and she is five months from her last stent exchange. I think she can probably go longer between stent exchanges instead of every three months to decrease her morbidity from repetitive anesthesia. I will see her in three months and have her come back in four months for stent exchange. Job ID: [id number]
[2018-11-03] MEDS ORDERED: Ondansetron PF 4 MG/2 ML Vial ONE (17:02)
[2018-11-03] MEDS ORDERED: PROPOFOL 200 MG/20 ML VIAL ONE (17:02)
[2018-11-03] MEDS ORDERED: Dexamethasone 20 MG/5 ML VIAL ONE (17:02)
[2018-11-03] MEDS ORDERED: Lidocaine 1% PF 5 ML VIAL ONE (17:02)
== END 2018-11-03 13:05 | disposition home or self-care (01) ==
LOC: SDC 08:59
PROVIDERS: ATTEND Urology
PROC: 0TP98DZ Removal of Intraluminal Device from Ureter, Via Natural or Artificial Opening Endoscopic (ICD-10-PCS; principal; 2018-11-03)
PROC: 0T788DZ Dilation of Bilateral Ureters with Intraluminal Device, Via Natural or Artificial Opening Endoscopic (ICD-10-PCS; principal; 2018-11-03)
DX: C53.9 Malignant neoplasm of cervix uteri, unspecified (principal); N13.1 Hydronephrosis with ureteral stricture, not elsewhere classified; C79.9 Secondary malignant neoplasm of unspecified site; Z79.899 Other long term (current) drug therapy; Z88.5 Allergy status to narcotic agent
CPT/HCPCS: 74420; C1769; J1100; J1956; J2001; J2250; J2405; J2704; J3010; Q9961

== ENCOUNTER 2018-11-08 11:38 | Outpatient (CLI) | payer OTHER ==
--- NOTE | 2018-11-08 15:02 | PET ---
PET CT: HISTORY: A 48-year-old female with stage IV cervical cancer. COMPARISON: PET CT from 08/04/2018. CT abdomen and pelvis from 08/02/2017. TECHNIQUE: A PET CT was performed from the skull base through the mid thigh, after the administration of 12.2 mi llicuries of F18 FDG. FINDINGS: There is hypermetabolic activity in the region of the cervix, extending up into the uterus. This has a max SUV of 8.5. No obvious hypermetabolic activity was seen in this region on the prior PET CT. Bilateral ureteral stents are present. No hydronephrosis is seen. Hypermetabolic activity is seen in the musculature surrounding the right shoulder, which is likely se condary to movement during the examination. No suspicious areas of hypermetabolic activity are seen within the neck or chest. No other areas of suspicious hypermetabolic activity are seen within the a bdomen or pelvis. No suspicious areas hypermetabolic activity are seen within the skeleton. The pat ient is status post cholecystectomy. Hardware is seen in the right femur. IMPRESSION: Hypermetabolic activity is seen within the cervix and uterus, consistent with the patient's diagnosis of cervical cancer. POS: WILLIAM
== END 2018-11-08 11:39 | disposition home or self-care (01) ==
LOC: PET 11:38
PROVIDERS: ATTEND Internal Medicine Hematology & Oncology
DX: C53.9 Malignant neoplasm of cervix uteri, unspecified (principal)
CPT/HCPCS: 78815; A9552

== ENCOUNTER 2019-02-01 09:54 | Emergency (ER) | payer OTHER | END 2019-02-01 10:48 | disposition left against medical advice (07) | LOC: ERS 09:54 | DX: M65.4 Radial styloid tenosynovitis [de Quervain] (principal) | CPT/HCPCS: 99283 ==

== ENCOUNTER 2019-02-02 10:50 | Outpatient (CLI) | payer OTHER ==
[2019-02-02 11:40] LABS: Hemoglobin 11.8 g/dL (12.0-16.0); Mean Corpuscular HGB CONC 32.4 g/dL (32.0-36.0); Mean Corpuscular Hemoglobin 29.6 pg (27.0-31.0); Mean Corpuscular Volume 91.3 fL (78.0-98.0); Mean Platelet Volume 6.8 fL (7.4-10.4); Platelet Count 394 thou/uL (130-400); RBC Distribution Width 13.7 % (11.5-14.5); Red Blood Cell (RBC) Count 3.99 mill/uL (4.20-5.40)
[2019-02-02 11:47] LABS: INR-International Normal Ratio 1.1; PTT 25.8 SEC (22.9-36.1); Prothrombin Time 14.3 SEC (12.0-14.7)
[2019-02-02 12:08] LABS: Anion Gap 14 mmol/L (10-20); BUN (Urea Nitrogen) 16 mg/dL (7.0-18.7); Calc. Creatinine Clearance 0 mL/min (70-130); Calcium 10.2 mg/dL (7.8-10.44); Carbon Dioxide 23 mmol/L (22-29); Chloride 104 mmol/L (98-107); Estimated GFR-MDRD 59; Glucose 99 mg/dL (70-105); Potassium 3.6 mmol/L (3.5-5.1); Sodium 137 mmol/L (136-145)
[2019-02-02 12:11] LABS: Bilirubin Small (Negative); Blood, Urine Large (Negative); Clarity TURBID (Clear); Glucose, Urine (Dipstick) Negative (Negative); Leukocyte Moderate (Negative); Nitrite Negative (Negative); Protein, Urine (Dipstick) 100 mg/dL (Neg-Trace); Specific Gravity, Urine 1.024 (1.002-1.036)
[2019-02-02 12:14] LABS: Bacteria/HPF None Seen HPF (None Seen); Hyaline Casts/LPF 0-3 HYALINE CAST LPF (0-3 Hyaline); Pathc Cast-AUWi Flag 0.47 (0-2.49); RBC/HPF GREATER THAN 50-TNTC HPF (0-3); Squamous Epithelial 0-3 HPF (0-3); WBC/HPF 21-50 HPF (0-3)
[2019-02-02 12:42] LABS: Transitional Epithelial 0-3 HPF (0-3)
== END 2019-02-02 10:51 | disposition home or self-care (01) ==
LOC: LABBT 10:50
PROVIDERS: ATTEND Urology
DX: Z01.818 Encounter for other preprocedural examination (principal); C53.9 Malignant neoplasm of cervix uteri, unspecified; N13.5 Crossing vessel and stricture of ureter without hydronephrosis
CPT/HCPCS: 80048; 81001; 85027; 85610; 85730; 87086; 93005; 93010

== ENCOUNTER 2019-02-10 09:29 | Day surgery (SDC) | payer OTHER ==
[2019-02-02 11:12] VITALS: BMI 26.1
[2019-02-10] MEDS ORDERED: Fentanyl 100 MCG/2 ML VIAL ONE (11:57)
[2019-02-10] MEDS ORDERED: Famotidine/PF 20 mg/2ml Vial ONE (11:57)
[2019-02-10] MEDS ORDERED: Meperidine HCl/PF 25 MG/ML VIAL ONE (11:57)
[2019-02-10] MEDS ORDERED: Iothalamate Meglumine 60% 50 ML VIAL FS ONE (12:33)
[2019-02-10] MEDS ORDERED: Levofloxacin 500 mg/D5W 100 ml Premix Bag ONE (12:41)
[2019-02-10] MEDS ORDERED: Phenazopyridine HCl 97.5 MG TABLET ONE (14:41)
[2019-02-10] MEDS ORDERED: Oxybutynin 5 MG TAB ONE (14:42)
[2019-02-10] MEDS ORDERED: Ondansetron PF 4 MG/2 ML Vial ONE (16:48)
[2019-02-10] MEDS ORDERED: Dexamethasone 20 MG/5 ML VIAL ONE (16:48)
[2019-02-10] MEDS ORDERED: Lidocaine 1% PF 5 ML VIAL ONE (16:48)
[2019-02-10] MEDS ORDERED: PROPOFOL 200 MG/20 ML VIAL ONE (16:48)
[2019-02-10] MEDS ORDERED: Metoclopramide HCl 10 MG/2 ML VIAL ONE (16:48)
--- NOTE | 2019-02-10 19:09 | OP ---
DATE OF PROCEDURE: 02/10/2019 SERVICE: Urology. PREOPERATIVE DIAGNOSIS: Cervical cancer with bilateral ureteral obstruction. POSTOPERATIVE DIAGNOSIS: Cervical cancer with bilateral ureteral obstruction. PROCEDURE PERFORMED: Cystoscopy with bilateral stent exchange. INDICATION FOR PROCEDURE: Ms. Thomas is a 48-year-old white female with advanced cervical cancer causing bilateral ureteral obstruction. She has been managed with ureteral stents, so that she can undergo chemotherapy and radiation. It is unclear whether or not she will ever receive a definitive hysterectomy. Risks and benefits of the procedure have been discussed previously and again on this visit, and she understands and wishes to proceed forward. DESCRIPTION OF PROCEDURE: After identification of armband and verification of consent, the patient was brought back to the operating room, where she underwent general anesthesia with LMA. She was then placed in dorsal lithotomy position, and prepped and draped in usual sterile fashion. After appropriate time-out, a lubricated 22-[place]odian rigid cystoscope was introduced per urethra into the bladder. Both stents were seen emanating from each ureteral orifice. The left stent was grasped and brought out to the level of the urethral meatus. A 0.035 Sensor wire was advanced through the stent up to the level of renal pelvis. The stent was then removed and discarded. The new stent was then advanced over the wire and up just inside the urethral meatus, then the pusher used to push it just beyond the meatus. At which point, the wire was removed and fluoroscopic confirmation demonstrating the stent in the bladder was confirmed. The cystoscope was then put back into the bladder with a good curl of the recent stent in the left bladder emanating from the left ureteral orifice. The right stent was then grasped and brought up to the level of the urethral meatus. The cystoscope was then put back alongside the stent back into the bladder, and the Sensor wire was advanced alongside the ureteral stent up to the level of the kidney. The stent was then removed by manual extracting the stent leaving the wire in place. A 6 x 26 double-J stent was advanced up this side as well up to the level of the renal pelvis. The wire was then removed leaving a good curl in the kidney and good curl in the bladder. Both stents were found to be in good position cystoscopically on fluoro and by visual inspection into the bladder. The bladder was then emptied and the cystoscope removed. The patient was then awakened, taken to PACU for recovery in stable condition. COMPLICATIONS: None. ESTIMATED BLOOD LOSS: Minimal. RETAINED TUBES AND DRAINS: Bilateral 6 x 26 double-J stents. SPECIMENS: None. DISPOSITION: The patient will be discharged home and follow up with me in approximately 2-1/2 months. At which point, we will consider repeat stent exchange. Job ID: [id number]
== END 2019-02-10 15:05 | disposition home or self-care (01) ==
LOC: SDC 09:29 → EEVIPCON 10:15 → SDC 15:05
PROVIDERS: ATTEND Urology
PROC: 0TP98DZ Removal of Intraluminal Device from Ureter, Via Natural or Artificial Opening Endoscopic (ICD-10-PCS; principal; 2019-02-10)
PROC: 0T788DZ Dilation of Bilateral Ureters with Intraluminal Device, Via Natural or Artificial Opening Endoscopic (ICD-10-PCS; principal; 2019-02-10)
DX: C53.9 Malignant neoplasm of cervix uteri, unspecified (principal); N13.1 Hydronephrosis with ureteral stricture, not elsewhere classified; F17.210 Nicotine dependence, cigarettes, uncomplicated; Z79.899 Other long term (current) drug therapy; Z88.2 Allergy status to sulfonamides; Z88.5 Allergy status to narcotic agent
CPT/HCPCS: 76000; C1769; J0131; J1100; J1956; J2001; J2175; J2405; J2704; J2765; J3010; Q9961; S0028

== ENCOUNTER 2019-03-27 09:43 | Outpatient (CLI) | payer OTHER ==
--- NOTE | 2019-03-27 10:43 | CT ---
CT Abdomen Pelvis W Con: 03/27/2019 12:00 AM CLINICAL INFORMATION: Ovarian cancer status post chemotherapy and radiation therapy COMPARISON: 08/02/2017; PET CT 11/08/2018 TECHNIQUE: Multiple contiguous axial images were obtained and a CT of the abdomen and pelvis with IV contrast. Oral contrast was administered. Coronal reformats were performed. FINDINGS: Lower Chest: within normal limits. Abdomen: Liver: within normal limits. Bile Ducts: Common bile duct measures 1.3 cm in size which is likely a reservoir effect from prior ch olecystectomy. Mild central intrahepatic dilatation. Gallbladder: Removed Pancreas: within normal limits. Spleen: within normal limits. Adrenals: within normal limits. Kidneys: Bilateral ureteral stents without evidence of hydronephrosis. The left kidney is smaller noah n on the prior examination. Pelvis: Reproductive Organs: The uterus is heterogeneous and measures 5.2 x 4.7 x 3.9 cm in size a metallic s tructure is seen in the cervix which could represent a brachytherapy seed. Ureters: Bilateral ureteral stents without hydronephrosis. Bladder: within normal limits. Peritoneum: No ascites or free air, no fluid collection. Bowel: Normal caliber. Mesentery and Retroperitoneum: No enlarged mesenteric or retroperitoneal lymph nodes. Vessels: Normal. Abdominal Wall: within normal limits. Bones: No suspicious osseous lesions identified. Screws are seen in the right femur. IMPRESSION: 1. Heterogeneous but smaller uterus and cervix. This likely represents a response to therapy. 2. Smaller left kidney is likely a result of injury from prior obstruction.
== END 2019-03-27 09:44 | disposition home or self-care (01) ==
LOC: BICCT 09:43
PROVIDERS: ATTEND Radiology Radiation Oncology
DX: C53.9 Malignant neoplasm of cervix uteri, unspecified (principal)
CPT/HCPCS: 74177